=== PATIENT | female | born 1945 | race Caucasian/White ===

== ENCOUNTER 2017-08-29 22:18 | Emergency (ER) | payer MEDICARE, OTHER ==
--- NOTE | 2017-08-29 22:30 | EDM.PDOC ---
ED HPI GENERAL MEDICAL PROBLEM - General Chief Complaint: Respiratory Problem Stated Complaint: SOB Time Seen by Provider: 08/29/17 22:20 Source of Information: Reports: Patient, EMS History Limitations: Reports: Other (No old records available) - History of Present Illness INITIAL COMMENTS - FREE TEXT/NARRATIVE: 72 yo female with pHx of COPD, CHF, and sleep apnea was at a nearby [facility] and developed SOB about 2030h tonight. Arrives via EMS from the [facility]. Has has some mild intermittent chest pain. No fever or cough. Onset: Today Onset Date: 08/29/17 Onset Time: 20:30 Duration: Hour(s):, Constant Location: Reports: Chest Severity: Moderate Improves with: Reports: Other (oxygen) Worsens with: Reports: Movement Context: Reports: Other (Hx of COPD/CHF) Associated Symptoms: Reports: Chest Pain, Shortness of Breath. Denies: Cough, Diaphoresis, Fever/Chills, Nausea/Vomiting Treatments [employer]: Reports: Oxygen (per EMS) - Related Data Allergies Allergy/AdvReac Type Severity Reaction Status Date / Time gabapentin Allergy Itching Verified 08/29/17 23:10 meperidine [From Demerol] Allergy Hives Verified 08/29/17 23:10 methyclothiazide Allergy Shortness Verified 08/29/17 23:10 [From Enduron] of Breath morphine Allergy Hives Verified 08/29/17 23:10 Penicillins Allergy Cannot Verified 08/29/17 23:10 Remember ED ROS GENERAL - Review of Systems Review Of Systems: See Below Constitutional: Reports: No Symptoms. Denies: Fever, Chills, Diaphoresis HEENT: Reports: No Symptoms Respiratory: Reports: Shortness of Breath. Denies: Wheezing, Pleuritic Chest Pain, Cough, Sputum, Hemoptysis Cardiovascular: Reports: Chest Pain (intermittent) GI/Abdominal: Reports: No Symptoms : Reports: No Symptoms Musculoskeletal: Reports: No Symptoms Skin: Reports: No Symptoms Neurological: Reports: No Symptoms Psychiatric: Reports: No Symptoms Hematologic/Lymphatic: Reports: No Symptoms ED EXAM, GENERAL - Physical Exam Exam: See Below Exam Limited By: No Limitations General Appearance: Alert, WD/WN, No Apparent Distress, Obese Eye Exam: Bilateral Eye: Normal Inspection Ears: Normal External Exam, Normal Canal, Hearing Grossly Normal Ear Exam: Bilateral Ear: Auricle Normal, Canal Normal Nose: Normal Inspection, Normal Mucosa, No Blood Throat/Mouth: Normal Inspection, Normal Lips, Normal Oropharynx, Normal Voice, No Airway Compromise Head: Atraumatic, Normocephalic Neck: Normal Inspection, Supple Respiratory/Chest: No Respiratory Distress, Lungs Clear, Normal Breath Sounds, No Accessory Muscle Use Cardiovascular: Regular Rate, Rhythm, Tachycardia GI/Abdominal: Normal Bowel Sounds, Soft, Non-Tender, No Distention Back Exam: Normal Inspection. No: CVA Tenderness (R), CVA Tenderness (L) Extremities: Normal Inspection, Normal Range of Motion, Non-Tender, No Pedal Edema Neurological: Alert, Oriented, CN II-XII Intact, Normal Cognition, No Motor/ Sensory Deficits Psychiatric: Normal Affect, Normal Mood Skin Exam: Warm, Dry, Intact, Normal Color, No Rash Lymphatic: No Adenopathy EKG INTERPRETATION EKG Date: 08/29/17 Time: 22:20 Rhythm: NSR Rate (Beats/Min): 93 [place]: Normal P-Wave: Present QRS: Normal ST-T: Other (? subtle ST depression inf leads.) QT: Normal Comparison: NA - No Prior EKG Course - Vital Signs Text/Narrative:: improved after a Duoneb tx. Last Recorded V/S: Last Vital Signs Temp 36.6 C 08/29/17 22:18 Pulse 106 H 08/29/17 22:18 Resp 24 H 08/29/17 22:18 BP 108/72 08/29/17 22:18 Pulse Ox 96 08/29/17 22:18 - Orders/Labs/Meds Orders: Active Orders 24 hr Category Date Time Status Cardiac Monitoring [RC] .As Directed Care 08/29/17 22:27 Active EKG Documentation Completion [RC] ASDIRECTED Care 08/29/17 22:26 Active RT Aerosol Therapy [RC] ASDIRECTED Care 08/29/17 23:22 Ordered Chest 1V Frontal [CR] Stat Exams 08/29/17 22:25 Taken EKG 12 Lead [EK] Routine Ther 08/29/17 22:26 Ordered Labs: Laboratory Tests 08/29/17 08/29/17 08/29/17 Range/Units 22:35 22:35 22:35 WBC 8.7 (4.5-12.0) X10-3/uL RBC 4.80 (3.23-5.20) x10(6)uL Hgb 14.6 (11.5-15.5) g/dL Hct 44.1 (30.0-51.3) % MCV 91.9 (80-96) fL MCH 30.5 (27.7-33.6) pg MCHC 33.2 (32.2-35.4) g/dL RDW 13.3 (11.5-15.5) % Plt Count 258 (125-369) X10(3)uL D-Dimer, Quantitative 137 (100-400) ng/mL Sodium 137 (135-145) mmol/L Potassium 3.3 L (3.5-5.3) mmol/L Chloride 102 (100-110) mmol/L Carbon Dioxide 14 L (23-29) mmol/L BUN 11 (8-23) mg/dL Creatinine 0.8 (0.6-1.3) mg/dL Est Cr Clr Drug Dosing TNP Estimated GFR (MDRD) > 60 (>60) BUN/Creatinine Ratio 13.8 (9-20) Glucose 162 H (80-116) mg/dL Calcium 9.2 (8.6-10.2) mg/dL Troponin I (0.02-0.06) NG/ML B-Natriuretic Peptide (0-100) pg/mL 08/29/17 08/29/17 Range/Units 22:35 22:35 WBC (4.5-12.0) X10-3/uL RBC (3.23-5.20) x10(6)uL Hgb (11.5-15.5) g/dL Hct (30.0-51.3) % MCV (80-96) fL MCH (27.7-33.6) pg MCHC (32.2-35.4) g/dL RDW (11.5-15.5) % Plt Count (125-369) X10(3)uL D-Dimer, Quantitative (100-400) ng/mL Sodium (135-145) mmol/L Potassium (3.5-5.3) mmol/L Chloride (100-110) mmol/L Carbon Dioxide (23-29) mmol/L BUN (8-23) mg/dL Creatinine (0.6-1.3) mg/dL Est Cr Clr Drug Dosing Estimated GFR (MDRD) (>60) BUN/Creatinine Ratio (9-20) Glucose (80-116) mg/dL Calcium (8.6-10.2) mg/dL Troponin I < 0.01 L (0.02-0.06) NG/ML B-Natriuretic Peptide 11 (0-100) pg/mL Meds: Medications Discontinued Medications Generic Name Dose Route Start Last Admin Trade Name Allanq PRN Reason Stop Dose Admin Albuterol/Ipratropium 3 ml 08/29/17 23:22 Duoneb 3.0-0.5 Mg/3 Ml NEB 08/29/17 23:23 ONETIME ONE Potassium Chloride 20 meq 08/29/17 23:10 08/29/17 23:17 Klor-Con 10 PO 08/29/17 23:11 20 meq ONETIME ONE Administration - Radiology Interpretation Free Text/Narrative:: CXR-negative Departure - Departure Time of Disposition: 23:44 Disposition: Home, Self-Care 01 Condition: Fair Clinical Impression: COPD (chronic obstructive pulmonary disease) Qualifiers: COPD type: COPD with acute exacerbation Qualified Code(s): J44.1 - Chronic obstructive pulmonary disease with (acute) exacerbation - Discharge Information Forms: ED Department Discharge - My Orders Last 24 Hours: My Active Orders 08/29/17 22:25 Chest 1V Frontal [CR] Stat 08/29/17 22:26 EKG Documentation Completion [RC] ASDIRECTED EKG 12 Lead [EK] Routine 08/29/17 22:27 Cardiac Monitoring [RC] .As Directed 08/29/17 23:22 RT Aerosol Therapy [RC] ASDIRECTED - Assessment/Plan Last 24 Hours: My Active Orders 08/29/17 22:25 Chest 1V Frontal [CR] Stat 08/29/17 22:26 EKG Documentation Completion [RC] ASDIRECTED EKG 12 Lead [EK] Routine 08/29/17 22:27 Cardiac Monitoring [RC] .As Directed 08/29/17 23:22 RT Aerosol Therapy [RC] ASDIRECTED
[2017-08-29] MEDS ORDERED: Potassium Chloride 10 MEQ Tab.ER PO ONE (23:10)
[2017-08-29] MEDS ORDERED: Albuterol/Ipratropium 3.0-0.5 MG/3 ML Neb Soln NEB ONE (23:22)
[2017-08-29] MEDS ORDERED: Albuterol 8 GM Inhaler INH ONE (23:57)
[2017-08-30 00:55] VITALS: BP 108/85
--- NOTE | 2017-08-30 12:16 | CR ---
INDICATION: Short of breath. CHEST: An AP upright view of the chest, 08/29/2017, revealed the heart to be most likely within normal limits in size, allowing for the AP positioning. The aorta is tortuous with calcification in the arch. The lungs appear to be somewhat hyperaerated. An active infiltrate or effusion was not identified. Mild dextroconcave scoliosis of the lower thoracic spine is noted with moderate degenerative changes. Overlying EKG leads are noted. IMPRESSION: 1. No acute process. 2. Possible ASHD. Heart normal to upper limits of normal in size. 3. Possible COPD - correlate clinically. MTDD
== END 2017-08-29 23:55 | disposition home or self-care (01) ==
LOC: FB.ED 22:18
DX: J44.1 Chronic obstructive pulmonary disease with (acute) exacerbation (principal); I50.9 Heart failure, unspecified; Z88.8 Allergy status to other drugs, medicaments and biological substances; Z88.5 Allergy status to narcotic agent; Z88.0 Allergy status to penicillin
CPT/HCPCS: 36415; 71010; 80048; 83880; 84484; 85027; 85379; 93005; 94640; 99285; A9270; J7620; 99283